=== PATIENT | female | born 1930 | race Caucasian/White ===

== ENCOUNTER → 2017-08-18 | Outpatient (CLI) | payer MEDICARE ==
[2017-08-18 11:52] LABS: Basophils % (A) 0 %; CH 30.1; CHCM 32.3; Eosinophils # (A) 0.1 k/uL (0-0.7); Eosinophils % (A) 1 %; HCT 22.8 % (34.0-46.0); HGB 7.1 gm/dL (11.4-16.0); Luc # (Auto) 0.13; Luc % (Auto) 1; Lymphocytes # (A) 1.4 k/uL (1.0-4.8); Lymphocytes % (A) 8 %; MCH 29.3 pg (25.0-35.0); MCHC 31.4 g/dL (31.0-37.0); MCV 93.5 fL (80.0-100.0); Mean Platelet Volume 8.5; Monocytes # (A) 0.6 k/uL (0-1.0); Monocytes % (A) 4 %; Neutrophils # (A) 15.3 k/uL (1.3-7.7); Neutrophils % (A) 87 %; RBC 2.44 m/uL (3.80-5.40); RDW 14.9 % (11.5-15.5); WBC 17.6 k/uL (3.8-10.6); WBC (Perox) 18.19
[2017-08-18 12:10] LABS: ALT 54 U/L (9-52); AST 24 U/L (14-36); Alkaline Phosphatase 72 U/L (38-126); Anion Gap 5 mmol/L; Blood Urea Nitrogen 48 mg/dL (7-17); Calcium 8.9 mg/dL (8.4-10.2); Carbon Dioxide 30 mmol/L (22-30); Chloride 101 mmol/L (98-107); Creatine Kinase 59 U/L (30-135); Glucose 179 mg/dL (74-99); Non-African American GFR(MDRD) 27 (>60 ml/min/1.73 sqM); Potassium 3.4 mmol/L (3.5-5.1); Sodium 136 mmol/L (137-145); Total Bilirubin 1.4 mg/dL (0.2-1.3); Total Protein 5.1 g/dL (6.3-8.2)
[2017-08-18 12:13] LABS: Rheumatoid Factor, Qnt <9 IU/mL (<12)
[2017-08-18 13:52] LABS: Erythrocyte Sedimentation Rate 48 mm/hr (0-20)
[2017-08-18 16:09] LABS: Iron Saturation 22.54 (12.00-45.00); Iron(FE) 55 ug/dL (50-170); Total Iron Binding Capacity 244 ug/dL (228-460)
[2017-08-18 16:49] LABS: ANA w/Reflex to Titer NEGATIVE (NEGATIVE)
== END | disposition home or self-care (01) ==
LOC: LABWHC1 11:03
PROVIDERS: ATTEND Internal Medicine Critical Care Medicine
DX: D64.9 Anemia, unspecified (principal); E78.5 Hyperlipidemia, unspecified; E03.9 Hypothyroidism, unspecified; J18.9 Pneumonia, unspecified organism; H35.30 Unspecified macular degeneration
CPT/HCPCS: 36415; 80053; 82550; 82728; 83540; 83550; 85025; 85652; 86038; 86255; 86431